=== PATIENT | male | born 1970 | race Caucasian/White ===

== ENCOUNTER 2017-01-16 02:00 | Emergency (ER) | payer SELFPAY ==
[2017-01-16 02:12] VITALS: BP 144/83; PULSE 89; RESP 18; TEMP 98.1; O2SAT 98
[2017-01-16 02:50] LABS: BASO # 0.1 K/uL (0.0-0.2); EOS # 0.2 K/uL (0.0-0.7); EOS % 1.6 % (0.0-4.0); HEMATOCRIT 45.4 % (35.0-51.0); LYMPH # 4.7 K/uL (1.0-4.3); LYMPH % 37.9 % (20.0-40.0); MEAN CELL VOLUME 87.6 fl (80.0-94.0); MEAN CORPUSCULAR HEMOGLOBIN 28.5 pg (27.0-31.0); MEAN CORPUSCULAR HGB CONC 32.6 g/dL (33.0-37.0); MEAN PLATELET VOLUME 8.9 fl (7.2-11.7); MONO % 8.4 % (0.0-10.0); NEUT # 6.3 K/uL (1.8-7.0); NEUT % 51.1 % (50.0-75.0); RED CELL DISTRIBUTION WIDTH 12.6 % (11.5-14.5); WHITE BLOOD COUNT 12.4 K/uL (4.8-10.8)
[2017-01-16 03:05] LABS: BLOOD UREA NITROGEN 21 mg/dl (9-20); GFR AFRICAN-AMERICAN > 60; GLUCOSE,RANDOM 122 mg/dL (75-110); SODIUM 139 mmol/l (132-148)
[2017-01-16 03:06] LABS: CALCIUM 8.8 mg/dL (8.4-10.2); CARBON DIOXIDE 28 mmol/L (22-30); CHLORIDE 102 mmol/L (98-107)
[2017-01-16 03:07] LABS: PARTIAL THROMBOPLASTIN TIME 27.5 SECONDS (23.3-32.5)
--- NOTE | 2017-01-16 03:53 | ED PDOC ---
HPI: Chest Pain Time Seen by Provider: 01/16/17 02:08 Chief Complaint (Nursing): Chest Pain Chief Complaint (Provider): chest pain History Per: Patient History/Exam Limitations: no limitations Onset/Duration Of Symptoms: Days (2) Current Symptoms Are (Timing): Still Present Additional Complaint(s): 46yo male presents to the ED with c/o left sided chest pain x 2 days that is non -exertional and non-radiating. Denies SOB, diaphoresis, recent travel, prolonged immobilization, fever, cough. Patient does not have PCP and does not take any meds. Past Medical History Reviewed: Historical Data, Nursing Documentation, Vital Signs Vital Signs: Last Vital Signs Temp 98.1 F 01/16/17 02:10 Pulse 89 01/16/17 02:10 Resp 18 01/16/17 02:10 BP 144/83 01/16/17 02:10 Pulse Ox 98 01/16/17 03:56 - Medical History PMH: Asthma - Surgical History Surgical History: Appendectomy, Tonsillectomy - Family History Family History: States: No Known Family Hx - Home Medications Home Medications: Ambulatory Orders Medication Instructions Recorded Ondansetron ODT [Zofran ODT] 4 mg PO Q8 PRN #12 odt 12/22/15 Albuterol HFA [Ventolin HFA 90 2 puff IH Q4H #1 puff 06/17/16 mcg/actuation (8 g)] Azithromycin [Zithromax] 500 mg PO DAILY #6 tablet 06/17/16 Naproxen [Naprosyn] 500 mg PO Q12H #20 tab 06/17/16 Clotrimazole 1% Cream [Lotrimin 1%] 30 applic EXT BID #1 tube 01/16/17 Cyclobenzaprine [Cyclobenzaprine 10 mg PO BID #15 tab 01/16/17 HCl] - Allergies Allergies/Adverse Reactions: Allergies Allergy/AdvReac Type Severity Reaction Status Date / Time No Known Allergies Allergy Verified 01/16/17 02:09 Review of Systems ROS Statement: Except As Marked, All Systems Reviewed And Found Negative Constitutional: Positive for: Other (no diaphoresis ). Negative for: Fever Cardiovascular: Positive for: Chest Pain Respiratory: Negative for: Cough, Shortness of Breath Physical Exam - Reviewed Nursing Documentation Reviewed: Yes Vital Signs Reviewed: Yes - Physical Exam Appears: Positive for: Well, No Acute Distress Head Exam: Positive for: ATRAUMATIC, NORMAL INSPECTION, NORMOCEPHALIC Skin: Positive for: Normal Color, Warm, Dry Eye Exam: Positive for: Normal appearance, EOMI, PERRL ENT: Positive for: Normal ENT Inspection Neck: Positive for: Normal, Painless ROM, Supple Cardiovascular/Chest: Positive for: Regular Rate, Rhythm. Negative for: Murmur , Tachycardia Respiratory: Positive for: Normal Breath Sounds. Negative for: Wheezing, Respiratory Distress Gastrointestinal/Abdominal: Positive for: Normal Exam, Bowel Sounds, Soft. Negative for: Tenderness Back: Positive for: Normal Inspection. Negative for: L CVA Tenderness, R CVA Tenderness Extremity: Positive for: Normal ROM. Negative for: Deformity, Swelling Neurologic/Psych: Positive for: Alert, Oriented. Negative for: Motor/Sensory Deficits - Laboratory Results Result Diagrams: 01/16/17 02:40 01/16/17 02:40 - ECG O2 Sat by Pulse Oximetry: 98 Pulse Ox Interpretation: Normal (RA) Medical Decision Making Medical Decision Makin: Impression: chest wall pain Plan: Labs CXR reassess 0349: Labs and CXR are normal. Return precautions given. Patient referred to the clinic and style advisor service. Patient stable for d/c. Scribe Attestation: Documented by Rodrick Trinh acting as a scribe for Francisco Delarosa MD. Provider Scribe Attestation: All medical record entries made by the Scribe were at my direction and personally dictated by me. I have reviewed the chart and agree that the record accurately reflects my personal performance of the history, physical exam, medical decision making, and the department course for this patient. I have also personally directed, reviewed, and agree with the discharge instructions and disposition. Disposition - Clinical Impression Clinical Impression: Chest wall pain - Patient ED Disposition Is Patient to be Admitted: No - Disposition Referrals: [facility] [Outside] [facility] [Outside] Disposition: Routine/Home Disposition Time: 03:49 Condition: STABLE Prescriptions: Cyclobenzaprine [Cyclobenzaprine HCl] 10 mg PO BID #15 tab Clotrimazole 1% Cream [Lotrimin 1%] 30 applic EXT BID #1 tube Instructions: Noncardiac Chest Pain (ED)
--- NOTE | 2017-01-16 08:20 | RAD ---
PROCEDURE: CHEST RADIOGRAPH, 1 VIEW HISTORY: cp COMPARISON: 06/17/2016 FINDINGS: LUNGS: Clear. The prior right lung base consolidation has cleared. PLEURA: No pneumothorax or pleural fluid seen. CARDIOVASCULAR: Normal. OSSEOUS STRUCTURES: No significant abnormalities. VISUALIZED UPPER ABDOMEN: Normal. OTHER FINDINGS: None. IMPRESSION: No active disease. Prior right lung base infiltrate has cleared/resolved. No interval pathology suggested
== END 2017-01-16 03:50 | disposition home or self-care (01) ==
LOC: H.ER 02:00
DX: R07.89 Other chest pain (principal)

== ENCOUNTER 2017-01-24 16:44 | Emergency (ER) | payer SELFPAY ==
[2017-01-24 17:07] VITALS: RESP 16; TEMP 98.4; O2SAT 100
--- NOTE | 2017-01-24 17:28 | ED PDOC ---
HPI: Chest Pain Time Seen by Provider: 01/24/17 17:03 Chief Complaint (Nursing): Chest Pain Chief Complaint (Provider): Chest Pain History Per: Patient History/Exam Limitations: no limitations Onset/Duration Of Symptoms: Hrs (prior to arrival ) Current Symptoms Are (Timing): Still Present Additional Complaint(s): 46 y/o male who presents to the emergency department with a complaint of a flutter sensation on the chest with a quick sharp pain at 4:16 pm that lasted 2- 3 seconds. Associated with mild weakness that had resolved since. Patient states he visited the ER on 01/16/2017 for a pressure located on the right side of the chest and was prescribed Flexeril. Last meal was at 11 am this morning. PMD: None (Last visit was 1 year ago) Past Medical History Reviewed: Historical Data, Nursing Documentation, Vital Signs Vital Signs: Last Vital Signs Temp 98.4 F 01/24/17 17:03 Pulse 62 01/24/17 17:50 Resp 16 01/24/17 17:03 BP 137/67 01/24/17 17:50 Pulse Ox 100 01/24/17 20:30 - Medical History PMH: Asthma - Surgical History Surgical History: Appendectomy, Tonsillectomy - Family History Family History: States: Diabetes, Other (Mother had a pacemaker and angina pectoris) - Social History Current smoker - smoking cessation education provided: No Ex-Smoker (has not smoked in the last 12 months): Yes (8 years ago) Alcohol: Social Drugs: Denies - Home Medications Home Medications: Ambulatory Orders Medication Instructions Recorded Ondansetron ODT [Zofran ODT] 4 mg PO Q8 PRN #12 odt 12/22/15 Albuterol HFA [Ventolin HFA 90 2 puff IH Q4H #1 puff 06/17/16 mcg/actuation (8 g)] Azithromycin [Zithromax] 500 mg PO DAILY #6 tablet 06/17/16 Naproxen [Naprosyn] 500 mg PO Q12H #20 tab 06/17/16 Clotrimazole 1% Cream [Lotrimin 1%] 30 applic EXT BID #1 tube 01/16/17 Cyclobenzaprine [Cyclobenzaprine 10 mg PO BID #15 tab 01/16/17 HCl] Clotrimazole/Betamethasone 1 appl EXT BID #1 tube 01/24/17 [Lotrisone] - Allergies Allergies/Adverse Reactions: Allergies Allergy/AdvReac Type Severity Reaction Status Date / Time No Known Allergies Allergy Verified 01/16/17 02:09 Review of Systems ROS Statement: Except As Marked, All Systems Reviewed And Found Negative Cardiovascular: Positive for: Other (Flutter and sudden sharp located on the right-side of the chest) Physical Exam - Reviewed Nursing Documentation Reviewed: Yes Vital Signs Reviewed: Yes - Physical Exam Appears: Positive for: Non-toxic, No Acute Distress Head Exam: Positive for: ATRAUMATIC, NORMOCEPHALIC Skin: Positive for: Normal Color, Warm, Dry, Rash (well demarcated dark scaly rash on LEFT wrist c/w tinea) Eye Exam: Positive for: Normal appearance. Negative for: Conjunctival injection Neck: Positive for: Normal, Supple Cardiovascular/Chest: Positive for: Regular Rate, Rhythm, Murmur Respiratory: Positive for: Normal Breath Sounds. Negative for: Respiratory Distress Extremity: Positive for: Normal ROM. Negative for: Pedal Edema, Swelling Lymphatic: Positive for: Normal Exam. Negative for: Adenopathy Neurologic/Psych: Positive for: Alert, Oriented - Laboratory Results Result Diagrams: 01/24/17 18:33 01/24/17 18:33 - ECG O2 Sat by Pulse Oximetry: 100 (RA) Pulse Ox Interpretation: Normal Medical Decision Making Medical Decision Making: Time: 17:03 Initial impression: Chest wall spasm vs palpitations differential includes hypothyroidism and hyperthyroidism Initial plan: --Electrocardiogram --COMP Metabolic Panel Stat --Magnesium Stat --Phosphorous stat --Thyroid Stimulating Hormone --Troponin I Stat --EKG-ED (EDNURTX) Stat --CBC w/ differential Stat --Chest two Views (PA/LAT) (RAD) --Toradol 15 mg IVP --IV Insertion (Saline Lock) Stat EKG- Normal Sinus at 89. Normal ST segments. T-wave inversions Lead III and AVF but similar EKG from 01/16/2017. No specific findings Time: 19:30 No clinically signicant lab abnormalities CXR no inf/eff Upon provider reevaluation patient is feeling better, is medically stable, and requires no further treatment in the ED at this time. Patient will be discahrged home with Rx for Lotrisone. Counseling was provided and all questions were answered regarding diagnosis and need for follow up with referred clinics. There is agreement to discharge plan. Return if symptoms persist or worsen. Clinical Impression: Chest kavitha and tinea corporis Scribe Attestation: Documented by Yolette Bergman, acting as a scribe for Barbi Barry MD. Provider Scribe Attestation: All medical record entries made by the Scribe were at my direction and personally dictated by me. I have reviewed the chart and agree that the record accurately reflects my personal performance of the history, physical exam, medical decision making, and the department course for this patient. I have also personally directed, reviewed, and agree with the discharge instructions and disposition. Disposition - Clinical Impression Clinical Impression: Chest pain, Tinea corporis - Patient ED Disposition Is Patient to be Admitted: No Counseled Patient/Family Regarding: Studies Performed, Rx Given - Disposition Referrals: [facility] [Outside] (CALL TOMORROW TO SETUP APPOINTMENT IN 1-2 DAYS. YOU WILL NEED TO SEE THE CLINIC TO BE REFERRED TO CARDIOLOGY) Disposition: Routine/Home Disposition Time: 19:30 Condition: STABLE Prescriptions: Clotrimazole/Betamethasone [Lotrisone] 1 appl EXT BID #1 tube Instructions: Chest Pain (ED), Costochondritis (ED), Tinea Corporis (ED)
[2017-01-24 17:56] VITALS: BP 137/67; PULSE 62
[2017-01-24 18:39] LABS: BASO # 0.1 K/uL (0.0-0.2); EOS # 0.2 K/uL (0.0-0.7); EOS % 1.5 % (0.0-4.0); HEMATOCRIT 46.8 % (35.0-51.0); LYMPH # 3.2 K/uL (1.0-4.3); LYMPH % 32.7 % (20.0-40.0); MEAN CELL VOLUME 86.9 fl (80.0-94.0); MEAN CORPUSCULAR HGB CONC 33.4 g/dL (33.0-37.0); MEAN PLATELET VOLUME 9.3 fl (7.2-11.7); MONO # 0.9 K/uL (0.0-0.8); MONO % 8.7 % (0.0-10.0); NEUT # 5.5 K/uL (1.8-7.0); NEUT % 56.1 % (50.0-75.0); RED CELL DISTRIBUTION WIDTH 12.9 % (11.5-14.5); WHITE BLOOD COUNT 9.9 K/uL (4.8-10.8)
[2017-01-24 18:48] LABS: ALB/GLOB RATIO 1.2 (1.0-2.1); ALKALINE PHOSPHATASE 90 U/L (38-126); ALT/SGPT 59 U/L (21-72); AST/SGOT 23 U/L (17-59); BILIRUBIN,TOTAL 0.4 mg/dl (0.2-1.3); BLOOD UREA NITROGEN 12 mg/dl (9-20); CALCIUM 9.7 mg/dL (8.4-10.2); CARBON DIOXIDE 26 mmol/L (22-30); CHLORIDE 101 mmol/L (98-107); GFR AFRICAN-AMERICAN > 60; GLUCOSE,RANDOM 90 mg/dL (75-110); PHOSPHOROUS 4.5 mg/dl (2.5-4.5); POTASSIUM 3.9 MMOL/L (3.6-5.0); SODIUM 142 mmol/l (132-148); TOTAL PROTEIN 7.2 G/DL (6.3-8.2)
[2017-01-24 19:19] LABS: THYROID STIMULATING HORMONE 0.81 mIU/ML (0.46-4.68)
--- NOTE | 2017-01-25 09:22 | RAD ---
HISTORY: cp COMPARISON: 01/16/17 TECHNIQUE: Chest PA and lateral FINDINGS: LUNGS: Minor bibasilar atelectasis left greater than right PLEURA: No significant pleural effusion identified. No pneumothorax apparent. CARDIOVASCULAR: Normal. OSSEOUS STRUCTURES: Mild degenerative changes both acromioclavicular joints. . Mild multilevel degenerative spondylosis of the thoracic spine VISUALIZED UPPER ABDOMEN: Normal. OTHER FINDINGS: None. IMPRESSION: Minor bibasilar atelectasis left greater than right
--- NOTE | 2017-01-25 18:10 | CARD ---
APPROVED REPORT EKG Measurement Heart [id number] <Conclusion> Normal sinus rhythm Abnormal QRS-T angle, consider primary T wave abnormality Abnormal ECG
== END 2017-01-24 20:04 | disposition home or self-care (01) ==
LOC: H.ER 16:44
DX: R07.89 Other chest pain (principal); B35.4 Tinea corporis
CPT/HCPCS: 71020; 80053; 83735; 84100; 84443; 84484; 85025; 93005; 96374; 99283; J1885

== ENCOUNTER 2017-10-01 05:05 | Emergency (ER) | payer SELFPAY ==
[2017-10-01 05:09] VITALS: BMI 33.4
[2017-10-01 05:11] VITALS: BP 132/78; PULSE 92; RESP 20; TEMP 97.9; O2SAT 97
--- NOTE | 2017-10-01 06:07 | ED PDOC ---
HPI: Headache Time Seen by Provider: 10/01/17 05:05 Chief Complaint (Nursing): Headache Chief Complaint (Provider): Headache History Per: Patient History/Exam Limitations: no limitations Onset/Duration Of Symptoms: Days (x10 ) Current Symptoms Are (Timing): Still Present Severity: Mild Preceeding Symptoms: None Associated Symptoms: denies: Vomiting Additional Complaint(s): Esa Pollard is a 47 year old male, with a past medical history of asthma, who presents to the emergency complaining of left sided headache onset for x10 days. Patient states the pain is worst when he coughs or with movement of head. He recently had a sinus infection, went to urgent care and was prescribed antibiotics. He reports taking Advil and saline spray with minimal relief. He denies any fever, vomit or sore throat. No further medical complaints. PMD: None provided. Past Medical History Reviewed: Historical Data, Nursing Documentation, Vital Signs Vital Signs: Last Vital Signs Temp 97.9 F 10/01/17 05:10 Pulse 92 H 10/01/17 05:10 Resp 20 10/01/17 05:10 BP 132/78 10/01/17 05:10 Pulse Ox 97 10/01/17 05:10 - Medical History PMH: Asthma - Surgical History Surgical History: Appendectomy (@ Age 13), Tonsillectomy (@ Age 6) - Family History Family History: States: Diabetes - Social History Current smoker - smoking cessation education provided: No Alcohol: None Drugs: Denies - Home Medications Home Medications: Ambulatory Orders Medication Instructions Recorded Ondansetron ODT [Zofran ODT] 4 mg PO Q8 PRN #12 odt 12/22/15 Albuterol HFA [Ventolin HFA 90 2 puff IH Q4H #1 puff 06/17/16 mcg/actuation (8 g)] Azithromycin [Zithromax] 500 mg PO DAILY #6 tablet 06/17/16 Naproxen [Naprosyn] 500 mg PO Q12H #20 tab 06/17/16 Clotrimazole 1% Cream [Lotrimin 1%] 30 applic EXT BID #1 tube 01/16/17 Cyclobenzaprine [Cyclobenzaprine 10 mg PO BID #15 tab 01/16/17 HCl] Clotrimazole/Betamethasone 1 appl EXT BID #1 tube 01/24/17 [Lotrisone] - Allergies Allergies/Adverse Reactions: Allergies Allergy/AdvReac Type Severity Reaction Status Date / Time No Known Allergies Allergy Verified 10/01/17 05:20 Review of Systems ROS Statement: Except As Marked, All Systems Reviewed And Found Negative Constitutional: Negative for: Fever ENT: Negative for: Throat Pain Gastrointestinal: Negative for: Vomiting Neurological: Positive for: Headache (left sided) Physical Exam - Reviewed Nursing Documentation Reviewed: Yes Vital Signs Reviewed: Yes - Physical Exam Appears: Positive for: Well, No Acute Distress Head Exam: Positive for: ATRAUMATIC, NORMAL INSPECTION Skin: Positive for: Normal Color, Warm, Dry Eye Exam: Positive for: Normal appearance, EOMI, PERRL ENT: Positive for: Normal ENT Inspection Neck: Positive for: Normal, Painless ROM, Supple Cardiovascular/Chest: Positive for: Regular Rate, Rhythm. Negative for: Murmur Respiratory: Positive for: Normal Breath Sounds. Negative for: Respiratory Distress Gastrointestinal/Abdominal: Positive for: Normal Exam, Soft. Negative for: Tenderness, Guarding, Rebound Back: Positive for: Normal Inspection. Negative for: L CVA Tenderness, R CVA Tenderness Extremity: Positive for: Normal ROM. Negative for: Pedal Edema, Deformity, Swelling Neurologic/Psych: Positive for: Alert, Oriented (x3). Negative for: Motor/ Sensory Deficits - ECG O2 Sat by Pulse Oximetry: 97 (RA) Pulse Ox Interpretation: Normal Medical Decision Making Medical Decision Making: Initial Impression: headache related to residual fluid Initial Plan: --Toradol 60 mg IM --reevaluation pt without signs of bacterial infection. afebrile, no cough fever or nasal discharge pt given saline neb and toradol and felt better 06:35 --Upon provider evaluation patient is medically stable, and requires no further treatment in the ED at this time. Patient will be discharged home. Counseling was provided and all questions were answered regarding diagnosis and need for follow up with ENT referral. There is agreement to discharge plan. Return if symptoms persist or worsen. Scribe Attestation: Documented by Max Stone, acting as a scribe for Davida Holder MD Provider Scribe Attestation: All medical record entries made by the Scribe were at my direction and personally dictated by me. I have reviewed the chart and agree that the record accurately reflects my personal performance of the history, physical exam, medical decision making, and the department course for this patient. I have also personally directed, reviewed, and agree with the discharge instructions and disposition. Disposition - Clinical Impression Clinical Impression: Headache - Patient ED Disposition Is Patient to be Admitted: No Counseled Patient/Family Regarding: Diagnosis, Need For Followup - Disposition Referrals: Allen Pollock MD [Staff Provider] - Disposition: Routine/Home Disposition Time: 06:15 Condition: IMPROVED Additional Instructions: follow up with ENT specialist as instructed continue nasal saline spray return to the ED with any worsening or concerning symptoms Instructions: General Headache (ED) Forms: [employer] (Citizen [place]
== END 2017-10-01 07:03 | disposition home or self-care (01) ==
LOC: H.ER 05:05
DX: R51 Headache (principal)
CPT/HCPCS: 96372; 99285; J1885

== ENCOUNTER 2018-10-09 11:04 | Emergency (ER) | payer SELFPAY ==
[2018-10-09 11:04] VITALS: BMI 33.4
[2018-10-09 13:17] VITALS: BP 144/92; PULSE 102; RESP 18; TEMP 97.9; O2SAT 99
== END 2018-10-09 13:05 | disposition left against medical advice (07) ==
LOC: H.ER 11:04
DX: Z02.89 Encounter for other administrative examinations (principal)